=== PATIENT | male | born 1980 | race American Indian/Alaskan Native ===

== ENCOUNTER 2022-01-10 09:15 | Observation (INO) | payer OTHER ==
[2022-01-10] MEDS ORDERED: ONDANSETRON 4 MG/2 ML INJ IV ONE (09:41)
[2022-01-10] MEDS ORDERED: NITROGLYCERIN 2% OINT 1 GM TP ONE (09:41)
[2022-01-10] MEDS ORDERED: fentaNYL 100 MCG/2 ML INJ IV ONE (09:41)
--- NOTE | 2022-01-10 09:46 | Emergency Department Report ---
HPI - General Chief Complaint: Chest Pain Time Seen by Provider: 01/10/22 09:34 - HPI HPI: Room 2 The patient 41-year-old male present with a chief complaint of chest pain. The patient states for the past 2 days he has had intermittent substernal chest tightness associated with left upper extremity paresthesia. Patient denies shortness of breath, nausea/vomiting or diaphoresis with this chest pain. Patient denies pleurisy. Patient currently gets his chest pain a score of 6/10. The patient states he's never had a stress test or cardiac catheterization ED Past Medical Hx - Past Medical History Previous Medical History?: Yes Hx Hypertension: Yes Hx Headaches / Migraines: Yes - Surgical History Past Surgical History?: Yes Additional Surgical History: L eye surgery - Family History Family history: no significant - Social History Smoking Status: Current Some Day Smoker Substance Use Type: Alcohol (Every other day), Marijuana - Medications Home Medications: Home Medications Medication Instructions Recorded Confirmed Last Taken Type Fluticasone Propionate [Flonase] 2 sprays NS QDAY #1 bottle 02/25/15 Unknown Rx HYDROcodone/APAP 5-325 [[place] 1 each PO Q6HR PRN #20 tablet 02/25/15 Unknown Rx 5/325] Ibuprofen [Motrin] 600 mg PO Q8H PRN #40 tablet 02/25/15 Unknown Rx Sulfamethoxazole/Trimethoprim 1 each PO BID #20 tablet 02/25/15 Unknown Rx [Bactrim Ds] lisinopriL [Lisinopril] 10 mg PO DAILY #30 tablet 02/25/15 Unknown Rx predniSONE [Deltasone] 40 mg PO QDAY #10 tab 02/25/15 Unknown Rx ED Review of Systems ROS: Stated complaint: CHEST PAIN Other details as noted in HPI Constitutional: denies: diaphoresis Eyes: denies: eye pain ENT: denies: throat pain Respiratory: denies: shortness of breath Cardiovascular: chest pain Endocrine: no symptoms reported Gastrointestinal: denies: nausea, vomiting Genitourinary: denies: dysuria Musculoskeletal: denies: back pain Neurological: paresthesias (Left upper extremity paresthesia) Physical Exam - Physical Exam Vital Signs: Vital Signs 01/10/22 09:20 Temperature 97.1 F L Pulse Rate 108 H Respiratory 16 Rate Blood Pressure 170/101 [Left] O2 Sat by Pulse 97 Oximetry Physical Exam: GENERAL: The patient is well-developed well-nourished male lying on stretcher not appearing to be in acute distress. [] HEENT: Normocephalic. Atraumatic. Extraocular motions are intact. Patient has moist mucous membranes. NECK: Supple. Trachea midline CHEST/LUNGS: Clear to auscultation. There is no respiratory distress noted. HEART/CARDIOVASCULAR: Regular. There is no tachycardia. There is no gallop rub or murmur. ABDOMEN: Abdomen is soft, nontender. Patient has normal bowel sounds. There is no abdominal distention. SKIN: There is no rash. There is no edema. There is no diaphoresis. NEURO: The patient is awake, alert, and oriented. The patient is cooperative. The patient has no focal neurologic deficits. The patient has normal speech. GCS 15 MUSCULOSKELETAL: There is no evidence of acute injury. ED Course Vital Signs 01/10/22 09:20 Temperature 97.1 F L Pulse Rate 108 H Respiratory 16 Rate Blood Pressure 170/101 [Left] O2 Sat by Pulse 97 Oximetry ED Medical Decision Making - Lab Data Result diagrams: 01/10/22 09:40 01/10/22 09:40 - EKG Data -: EKG Interpreted by Me EKG shows normal: sinus rhythm Rate: normal - EKG Data When compared to previous EKG there are: previous EKG unavailable Interpretation: nonspecific ST-T wave lon (T wave inversions in leads II, 3, aVF, V6.), other (EKG sent to and discussed with brush machine setter Dr. Najera at 09:33- no STEMI) - Radiology Data Radiology results: report reviewed (Chest x-ray), image reviewed (Chest x-ray) interpreted by me: Chest x-ray-no definite focal infiltrates, no pneumothorax [facility] [address] [place] [address] XRay Report Signed Patient: PROSPER BARNETT MR#: [id number] : 1980 Acct:[id number] Age/Sex: 41 / M ADM Date: 01/10/22 Loc: ED Attending Dr: Ordering Physician: MARCELO MATUTE MD Date of Service: 01/10/22 Procedure(s): XR chest 1V ap Accession Number(s): [id number] cc: MARCELO MATUTE MD Fluoro Time In M inutes: CHEST 1 VIEW INDICATION: chest pain. COMPARISON: None. FINDINGS: Support devices: None. Heart: Normal. Lungs/Pleura: No acute pulmonary or pleural findings. IMPRESSION: 1. No acute findings. Signer Name: Constantine Ponce MD Signed: 01/10/2022 9:59 AM Workstation Name: [id number] Transcribed By: KALLIE Dictated By: Constantine Ponce MD Electronically Authenticated By: Constantine Ponce MD Signed Date/Time: 01/10/22958 DD/ 7 TD/TT: Print Cancel - Differential Diagnosis ACS, pericarditis, GERD, costochondritis, anxiety Critical care attestation.: If time is entered above; I have spent that time in minutes in the direct care of this critically ill patient, excluding procedure time. ED Disposition Clinical Impression: Chest pain Disposition: ADMITTED INPATIENT Is pt being admited?: Yes Condition: Fair Instructions: Nonspecific Chest Pain, Adult Referrals: VINITA LYONS MD [Primary Care Provider] - 3-5 Days Time of Disposition: 10:38 (Hospitalist called (Dr Power)) Heart Score - HEART Score History: Highly suspicious EKG: Non-specific Age: < 45 Risk factors: 1-2 risk factors Troponin: < normal limit HEART Score: 4 - EKG Read Time Time EKG Completed: 09:27 EKG Read Time: 09:33
[2022-01-10] MEDS: ASPIRIN 325 MG TAB PO ONE (09:51)
--- NOTE | 2022-01-10 10:03 | XRay Report ---
CHEST 1 VIEW INDICATION: chest pain. COMPARISON: None. FINDINGS: Support devices: None. Heart: Normal. Lungs/Pleura: No acute pulmonary or pleural findings. IMPRESSION: 1. No acute findings. Signer Name: Constantine Ponce MD Signed: 01/10/2022 9:59 AM Workstation Name: [id number]
[2022-01-10 10:15] LABS: Basophils % (Auto) 0.5 % (0.0-1.8); Eosinophils # (Auto) 0.4 K/mm3 (0.0-0.4); Eosinophils % (Auto) 5.7 % (0.0-4.3); Hematocrit 43.2 % (35.5-45.6); Hemoglobin 14.2 gm/dl (11.8-15.2); Lymphocytes # (Auto) 1.4 K/mm3 (1.2-5.4); Lymphocytes % (Auto) 21.2 % (13.4-35.0); Mean Corpuscular HGB Conc 33 % (32-34); Mean Corpuscular Volume 103 fl (84-94); Monocytes # (Auto) 0.5 K/mm3 (0.0-0.8); Platelet Count 171 K/mm3 (140-440); Red Blood Count 4.19 M/mm3 (3.65-5.03)
[2022-01-10 10:19] LABS: INR 0.8 (0.87-1.13)
[2022-01-10 10:28] LABS: BUN/Creatinine Ratio 13; Blood Urea Nitrogen 12 mg/dL (9-20); Calcium 9.4 mg/dL (8.4-10.2); Hemolysis Index 49
[2022-01-10] MEDS ORDERED: ONDANSETRON 4 MG/2 ML INJ IV PRN (11:01)
[2022-01-10] MEDS ORDERED: MORPHINE 4 MG/1 ML INJ IV PRN (11:01)
[2022-01-10] MEDS ORDERED: oxyCODONE /ACETAMINOPHEN 5-325MG TAB PO PRN (11:01)
[2022-01-10] MEDS ORDERED: NALOXONE 0.4 MG/1 ML INJ IV PRN (11:01)
[2022-01-10] MEDS ORDERED: ACETAMINOPHEN 325 MG TAB PO PRN (11:01)
--- NOTE | 2022-01-10 11:05 | History and Physical Report ---
Medications and Allergies Allergies Allergy/AdvReac Type Severity Reaction Status Date / Time No Known Allergies Allergy Unverified 02/25/15 20:08 Home Medications Medication Instructions Recorded Confirmed Last Taken Type Fluticasone Propionate [Flonase] 2 sprays NS QDAY #1 bottle 02/25/15 Unknown Rx HYDROcodone/APAP 5-325 [[place] 1 each PO Q6HR PRN #20 tablet 02/25/15 Unknown Rx 5/325] Ibuprofen [Motrin] 600 mg PO Q8H PRN #40 tablet 02/25/15 Unknown Rx Sulfamethoxazole/Trimethoprim 1 each PO BID #20 tablet 02/25/15 Unknown Rx [Bactrim Ds] lisinopriL [Lisinopril] 10 mg PO DAILY #30 tablet 02/25/15 Unknown Rx predniSONE [Deltasone] 40 mg PO QDAY #10 tab 02/25/15 Unknown Rx Active Meds: Active Medications Acetaminophen (Acetaminophen 325 Mg Tab) 650 mg PO Q4H PRN PRN Reason: Pain MILD(1-3)/Fever >100.5/PALACIOS Heparin Sodium (Porcine) (Heparin 5,000 Unit/1 Ml Vial) 5,000 unit SUB-Q Q12H BELLO Morphine Sulfate (Morphine 4 Mg/1 Ml Inj) 4 mg IV Q4H PRN PRN Reason: Pain , Severe (7-10) Naloxone HCl (Naloxone 0.4 Mg/1 Ml Inj) 0.1 mg IV Q2MIN PRN PRN Reason: Res Rate </= 8 or 02 SAT < 92% Ondansetron HCl (Ondansetron 4 Mg/2 Ml Inj) 4 mg IV Q8H PRN PRN Reason: Nausea And Vomiting Oxycodone/Acetaminophen (Oxycodone /Acetaminophen 5-325mg Tab) 1 tab PO Q6H PRN PRN Reason: Pain, Moderate (4-6) Sodium Chloride (Sodium Chloride 0.9% 10 Ml Flush Syringe) 10 ml IV BID BELLO Sodium Chloride (Sodium Chloride 0.9% 10 Ml Flush Syringe) 10 ml IV PRN PRN PRN Reason: LINE FLUSH Exam - Constitutional Vitals: Temp Pulse Resp BP Pulse Ox 97.1 F L 107 H 26 H 142/83 97 01/10/22 09:20 01/10/22 10:00 01/10/22 10:00 01/10/22 10:00 01/10/22 10:00 HEART Score - HEART Score EKG: Non-specific Age: < 45 Risk factors: 1-2 risk factors Troponin: Troponin T < 0.010 ng/mL (0.00-0.029) 01/10/22 09:40 Troponin: < normal limit Results - Labs CBC & Chem 7: 01/10/22 09:40 02 09:40 Labs: Laboratory Last Values WBC 6.5 K/mm3 (4.5-11.0) 01/10/22 09:40 RBC 4.19 M/mm3 (3.65-5.03) 01/10/22 09:40 Hgb 14.2 gm/dl (11.8-15.2) 01/10/22 09:40 Hct 43.2 % (35.5-45.6) 01/10/22 09:40 MCV 103 fl (84-94) H 01/10/22 09:40 MCH 34 pg (28-32) H 01/10/22 09:40 MCHC 33 % (32-34) 01/10/22 09:40 RDW 14.0 % (13.2-15.2) 01/10/22 09:40 Plt Count 171 K/mm3 (140-440) 01/10/22 09:40 Lymph % (Auto) 21.2 % (13.4-35.0) 01/10/22 09:40 Fisher % (Auto) 8.0 % (0.0-7.3) H 01/10/22 09:40 Eos % (Auto) 5.7 % (0.0-4.3) H 01/10/22 09:40 Baso % (Auto) 0.5 % (0.0-1.8) 01/10/22 09:40 Lymph # (Auto) 1.4 K/mm3 (1.2-5.4) 01/10/22 09:40 Fisher # (Auto) 0.5 K/mm3 (0.0-0.8) 01/10/22 09:40 Eos # (Auto) 0.4 K/mm3 (0.0-0.4) 01/10/22 09:40 Baso # (Auto) 0.0 K/mm3 (0.0-0.1) 01/10/22 09:40 Seg Neutrophils % 64.6 % (40.0-70.0) 01/10/22 09:40 Seg Neutrophils # 4.2 K/mm3 (1.8-7.7) 01/10/22 09:40 PT 12.0 Sec. (12.2-14.9) L 01/10/22 09:40 INR 0.80 (0.87-1.13) L 01/10/22 09:40 Sodium 140 mmol/L (137-145) 01/10/22 09:40 Potassium 3.8 mmol/L (3.6-5.0) 01/10/22 09:40 Chloride 102.1 mmol/L (98-107) 01/10/22 09:40 Carbon Dioxide 22 mmol/L (22-30) 01/10/22 09:40 Anion Gap 20 mmol/L 01/10/22 09:40 BUN 12 mg/dL (9-20) 01/10/22 09:40 Creatinine 0.9 mg/dL (0.8-1.3) 01/10/22 09:40 Estimated GFR > 60 ml/min 01/10/22 09:40 BUN/Creatinine Ratio 13 % 01/10/22 09:40 Glucose 152 mg/dL (75-100) H 01/10/22 09:40 Calcium 9.4 mg/dL (8.4-10.2) 01/10/22 09:40 Total Creatine Kinase 294 units/L (55-170) H 01/10/22 09:40 CK-MB (CK-2) 5.0 ng/mL (0.0-4.0) H 01/10/22 09:40 CK-MB (CK-2) Rel Index 1.7 (0-4) 01/10/22 09:40 Troponin T < 0.010 ng/mL (0.00-0.029) 01/10/22 09:40 NT-Pro-B Natriuret Pep 46.21 pg/mL (0-450) 01/10/22 09:40
[2022-01-10] MEDS ORDERED: HEPARIN 5,000 UNIT/1 ML VIAL SUB-Q SCH (11:15)
[2022-01-10 11:42] LABS: HDL Cholesterol 38 mg/dL (40-59); LDL Cholesterol,Direct TNR mg/dL (50-130)
--- NOTE | 2022-01-10 13:18 | Consultation ---
History of Present Illness Consult date: 01/10/22 Requesting physician: MARCELO MATUTE Consult reason: chest pain History of present illness: Patient is a 41-year-old male with a past medical history of hypertension who presents to the ED today with a complaint of chest pain for 2 days. Patient reports that he has had intermittent chest soreness associated with left upper extremity numbness. Patient states that the pain is worse with palpation and movement of his upper extremity. Patient denies shortness of breath, nausea or vomiting, diaphoresis, lightheadedness or palpitations. Patient denies any pressure or crushing sensation. Patient is previously unknown to our practice. Cardiology is consulted for chest pain Past History Past Medical History: hypertension Past Surgical History: Other (Reports eye surgery) Family history: CAD, hypertension Medications and Allergies Allergies Allergy/AdvReac Type Severity Reaction Status Date / Time No Known Allergies Allergy Unverified 02/25/15 20:08 Home Medications Medication Instructions Recorded Confirmed Last Taken Type Fluticasone Propionate [Flonase] 2 sprays NS QDAY #1 bottle 02/25/15 Unknown Rx AtorvaSTATin [Lipitor] 40 mg PO QHS 30 Days #30 tab 01/10/22 Unknown Rx Metoprolol Xl [Metoprolol 25 mg PO QDAY 30 Days #30 tablet 01/10/22 Unknown Rx SUCCINATE ER TAB] Naproxen Sodium [Naproxen Sodium 550 mg PO BID 5 Days #10 tab 01/10/22 Unknown Rx 550mg] Pantoprazole [Protonix TAB] 40 mg PO QDAY 30 Days #30 tablet 01/10/22 Unknown Rx Active Meds: Active Medications Acetaminophen (Acetaminophen 325 Mg Tab) 650 mg PO Q4H PRN PRN Reason: Pain MILD(1-3)/Fever >100.5/PALACIOS Heparin Sodium (Porcine) (Heparin 5,000 Unit/1 Ml Vial) 5,000 unit SUB-Q Q12H BELLO Metoprolol Succinate (Metoprolol Succinate Xl 25 Mg Tab) 25 mg PO QDAY BELLO Morphine Sulfate (Morphine 4 Mg/1 Ml Inj) 4 mg IV Q4H PRN PRN Reason: Pain , Severe (7-10) Naloxone HCl (Naloxone 0.4 Mg/1 Ml Inj) 0.1 mg IV Q2MIN PRN PRN Reason: Res Rate </= 8 or 02 SAT < 92% Ondansetron HCl (Ondansetron 4 Mg/2 Ml Inj) 4 mg IV Q8H PRN PRN Reason: Nausea And Vomiting Oxycodone/Acetaminophen (Oxycodone /Acetaminophen 5-325mg Tab) 1 tab PO Q6H PRN PRN Reason: Pain, Moderate (4-6) Sodium Chloride (Sodium Chloride 0.9% 10 Ml Flush Syringe) 10 ml IV BID BELLO Sodium Chloride (Sodium Chloride 0.9% 10 Ml Flush Syringe) 10 ml IV PRN PRN PRN Reason: LINE FLUSH Review of Systems Constitutional: no weight loss, no weight gain Ears, nose, mouth and throat: no nasal discharge, no sinus pressure, no sinus pain Cardiovascular: chest pain, no orthopnea, no palpitations, no edema, no syncope, no shortness of breath, no dyspnea on exertion Respiratory: no shortness of breath, no dyspnea on exertion Gastrointestinal: no abdominal pain, no nausea, no vomiting Musculoskeletal: arm numbness/tingling Integumentary: no rash, no pruritis, no redness Neurological: numbness (Left upper extremity) Psychiatric: no anxiety, no memory loss Endocrine: no cold intolerance, no heat intolerance Hematologic/Lymphatic: no easy bruising, no easy bleeding Physical Examination Vital Signs Temp Pulse Resp BP Pulse Ox 97.1 F L 108 H 16 170/101 97 01/10/22 09:20 01/10/22 09:20 01/10/22 09:20 01/10/22 09:20 01/10/22 09:20 General appearance: no acute distress HEENT: Positive: PERRL Neck: Positive: trachea midline Cardiac: Positive: Reg Rate and Rhythm Lungs: Positive: Normal Breath Sounds Neuro: Positive: Grossly Intact Abdomen: Positive: Soft, Active Bowel Sounds Skin: Negative: Rash, Suspicious Lesions, Ulceration Extremities: Present: upper extr. pulses. Absent: edema Results 01/10/22 09:40 01/10/22 09:40 Cardiac Enzymes 01/10/22 Range/Units 09:40 CK-MB (CK-2) 5.0 H (0.0-4.0) ng/mL Coagulation 01/10/22 Range/Units 09:40 PT 12.0 L (12.2-14.9) Sec. INR 0.80 L (0.87-1.13) Lipids 01/10/22 Range/Units 11:07 Triglycerides 458 H (2-149) mg/dL Cholesterol 171 (50-199) mg/dL HDL Cholesterol 38 L (40-59) mg/dL Cholesterol/HDL Ratio 4.50 % CBC 01/10/22 Range/Units 09:40 WBC 6.5 (4.5-11.0) K/mm3 RBC 4.19 (3.65-5.03) M/mm3 Hgb 14.2 (11.8-15.2) gm/dl Hct 43.2 (35.5-45.6) % Plt Count 171 (140-440) K/mm3 Lymph # (Auto) 1.4 (1.2-5.4) K/mm3 Story # (Auto) 0.5 (0.0-0.8) K/mm3 Eos # (Auto) 0.4 (0.0-0.4) K/mm3 Baso # (Auto) 0.0 (0.0-0.1) K/mm3 Comprehensive Metabolic Panel 01/10/22 Range/Units 09:40 Sodium 140 (137-145) mmol/L Potassium 3.8 (3.6-5.0) mmol/L Chloride 102.1 (98-107) mmol/L Carbon Dioxide 22 (22-30) mmol/L BUN 12 (9-20) mg/dL Creatinine 0.9 (0.8-1.3) mg/dL Glucose 152 H (75-100) mg/dL Calcium 9.4 (8.4-10.2) mg/dL - Imaging and Cardiology Echo: pending, report reviewed EKG interpretations - Telemetry EKG Rhythm: Sinus Tachycardia - EKG Sinus rhythms and dysrhythmias: sinus tachycardia Ventricular dysrhythmias: ventricular premature com Chamber hypertrophy or enlargement: left ventricular hypertro Assessment and Plan Patient is a 41-year-old male with a past medical history of hypertension who presents to the ED today with a complaint of chest pain for 2 days. Atypical chest pain Hypertension Plan: EKG shows sinus tach 103 with LVH PVC. No acute ischemic changes. Troponin is negative x1. Repeat cardiac enzyme pending. Patient has atypical chest pain worsened with palpitation and movement of extremity Preliminary echo shows mild LV dysfunction with EF around 45 to 50%. LV dysfunction likely associated with poorly controlled hypertension Will initiate metoprolol XL 25 mg p.o. daily No LYNDA or ARB due to patient reported angioedema with LYNDA inhibitor Cardiac status otherwise stable for discharge Patient to follow-up as an outpatient for further evaluation. Discussed plan of care with patient who verbalized acknowledgment understanding Patient should follow with Dr. Najera, [facility] application integration specialist, on 01/27/2022 at 3:15 PM in our [place] location. Phone #[phone] Patient seen in conjunction with Dr. Najera who agrees with this plan of care - Patient Problems (1) Atypical chest pain Current Visit: Yes Status: Acute (2) Hypertension Current Visit: Yes Status: Acute (3) Cardiomyopathy Current Visit: Yes Status: Acute
--- NOTE | 2022-01-10 13:43 | Discharge Summary ---
Providers - Providers Date of Admission: 01/10/22 11:01 Attending physician: SALTY UMANA MD 01/10/22 10:41 Consult to Physician [CONS] Urgent Comment: Consulting Provider: RENEE NAJERA Physician Instructions: Reason For Exam: Chest pain Primary care physician: VINITA LYONS Hospitalization Condition: Fair Hospital course: EKG shows sinus tach 103 with LVH PVC. No acute ischemic changes. Troponin is negative x1. Repeat cardiac enzyme pending. Patient has atypical chest pain worsened with palpitation and movement of extremity Preliminary echo shows mild LV dysfunction with EF around 45 to 50%. LV dysfunction likely associated with poorly controlled hypertension Will initiate metoprolol XL 25 mg p.o. daily No LYNDA or ARB due to patient reported angioedema with LYNDA inhibitor Cardiac status otherwise stable for discharge Patient to follow-up as an outpatient for further evaluation. Discussed plan of care with patient who verbalized acknowledgment understanding Disposition: HOME / SELF CARE / HOMELESS Final Discharge Diagnosis (Prints w/discharge instructions): Atypical chest pain. Hypertension. Prediabetes Time spent for discharge: 35 minutes Exam - Constitutional Vitals: Temp Pulse Resp BP Pulse Ox 97.1 F L 87 25 H 141/98 99 01/10/22 09:20 01/10/22 13:30 01/10/22 13:30 01/10/22 13:30 01/10/22 13:30 Plan Care Plan Goals: Schedule an appointment with Dr. Najera, [facility] technical operations specialist, in 1 to 2 weeks after discharge. Phone #[phone]. Please start taking the new medications that we have given you. We are concerned about your blood pressure needed better control. Also try to cut back on the amount of alcohol and marijuana that you use as we discussed. This will only improve your overall health in the future. Follow up with: VINITA LYONS MD [Primary Care Provider] - 3-5 Days Prescriptions: AtorvaSTATin [Lipitor] 40 mg PO QHS 30 Days #30 tab Metoprolol Xl [Metoprolol SUCCINATE ER TAB] 25 mg PO QDAY 30 Days #30 tablet Naproxen Sodium [Naproxen Sodium 550mg] 550 mg PO BID 5 Days #10 tab Pantoprazole [Protonix TAB] 40 mg PO QDAY 30 Days #30 tablet
[2022-01-10] MEDS ORDERED: METOPROLOL SUCCINATE XL 25 MG TAB PO SCH (14:00)
[2022-01-10 14:30] VITALS: BP 145/100
--- NOTE | 2022-01-15 17:04 | Electrocardiograph Report ---
[facility] Test Date: 2022-01-10 Test Time: 09:27:23 Pat Name: PROSPER BARNETT Department: Room: A474 1 Gender: M Information Assurance Officer: BITA : 1980 Requested By: MARCELO MATUTE Order Number: [id number] Reading MD: Maximiliano Castellanos Measurements Intervals [place] Rate: 103 P: 44 KS: 157 QRS: 74 QRSD: 104 T: -58 QT: 323 QTc: 424 Interpretive Statements Sinus tachycardia Multiform ventricular premature complexes Left atrial enlargement Left ventricular hypertrophy No previous ECG available for comparison Electronically Signed On 01-15-2022 17:03:51 EST by Maximiliano Castellanos
== END 2022-01-10 14:45 | disposition home or self-care (01) ==
LOC: ED 09:15 → 4A 11:01 → INTOOBSV 11:01
PROVIDERS: ADMIT Student in an Organized Health Care Education/Training Program; ATTEND Student in an Organized Health Care Education/Training Program
DX: R07.89 Other chest pain (principal); Z20.822 Contact with and (suspected) exposure to COVID-19; I10 Essential (primary) hypertension; I42.9 Cardiomyopathy, unspecified; G43.909 Migraine, unspecified, not intractable, without status migrainosus; F17.210 Nicotine dependence, cigarettes, uncomplicated; Z79.899 Other long term (current) drug therapy; Z98.890 Other specified postprocedural states
CPT/HCPCS: 36415; 71045; 80048; 80061; 82550; 82553; 83036; 83880; 84484; 85025; 85610; 93005; 96374; 96375; 99285; C8929; G0378; J2405; J3010; 93306